=== PATIENT | female | born 1985 | race Caucasian/White ===

== ENCOUNTER 2016-06-10 12:41 | Emergency (ER) | payer MEDICAID, OTHER ==
--- NOTE | 2016-06-10 13:11 | EDPHY ---
H & P Stated Complaint: Stitches coming out ?>a yr;low L abd pain also >1yr;had abd surg 8 yrs ago Time Seen by Provider: 06/10/16 13:02 HPI/ROS: CHIEF COMPLAINT: Needs medical records. HISTORY OF PRESENT ILLNESS: This patient does not want to be evaluated by a doctor. She had intended to visit medical records and is simply seeking record sof a past operation. I did not obtain a history or perform an exam. REVIEW OF SYSTEMS: See above. - Personal History LMP (Females 10-55): Irregular Current Tetanus Diphtheria and Acellular Pertussis (TDAP): Unsure - Medical/Surgical History Other PMH: 1. Ovarian torsion w/surg 8 yrs ago. 2. ADHD - Social History Smoking Status: Current some day smoker - Physical Exam Exam: No physical exam performed. Constitutional: Initial Vital Signs Temperature (C) 37 C 06/10/16 12:45 Heart Rate 98 06/10/16 12:45 Respiratory Rate 18 06/10/16 12:45 Blood Pressure 125/94 H 06/10/16 12:45 O2 Sat (%) 96 06/10/16 12:45 O2 Delivery Mode Room Air Allergies/Adverse Reactions: No Known Allergies Allergy (Unverified 11/16/09 18:14) Home Medications: Medication Instructions Recorded RAINA 11/16/09 Medical Decision Making ED Course/Re-evaluation: This patient does not want to be evaluated by a doctor. She had intended to visit medical records and is simply seeking record of a past operation. I did not obtain a history or perform an exam. I have informed her that she will not receive a professional bill from [facility]. She understands that I do not have control over the hospital billing. She knows that a urinalysis was performed. She does not want evaluation or treatment based upon any results of the urinalysis. She will see her primary care physician for any problems that she is experiencing. Departure - Departure Disposition: Home, Routine, Self-Care Clinical Impression: Not Seen by Provider Condition: Good Additional Instructions: You were treated by Dr. Harrell in 2009. You can visit the medical records department for detailed records of this. Return to the ED for any serious worsening of condition. If you are having problems with urination or with pelvic pain I recommend that you follow up with an OBGYN. As we discussed, you did not receive a medical evaluation or examination in the emergency department. It was not your desire to be seen by physician in the emergency department. You should not receive a bill from a physician. When you receive a bill from the hospital you will need to discuss this with the financial department. Let them know that it was a misunderstanding that ended up with you signing into the emergency department and having urine sent for evaluation. Referrals: [facility] SOLO [Other] - As per Instructions Report Scribed for: Madonna Castillo Report Scribed by: Arslan Ramirez Date of Report: 06/10/16 Time of Report: 14:10 Physician Review and Approval Statement: 06/10/16 13:11 Portions of this note were transcribed by the medical assistant internal medicine. I, Dr. Madonna Castillo, personally performed the history, physical exam, and medical decision- making; and confirmed the accuracy of the information in the transcribed note.
[2016-06-10 13:50] LABS: COLOR YELLOW; LEUKOCYTE ESTERASE,URINE TRACE (NEGATIVE); NITRITE,URINE NEGATIVE (NEGATIVE)
[2016-06-10 14:12] LABS: BACTERIA 2+ /hpf (NONE SEEN)
[2016-06-10 14:30] VITALS: BP 134/79; PULSE 66; RESP 20; TEMP 97.9; O2SAT 97
== END 2016-06-10 14:30 | disposition home or self-care (01) ==
DX: Z53.21 Procedure and treatment not carried out due to patient leaving prior to being seen by health care provider (principal); F17.200 Nicotine dependence, unspecified, uncomplicated